=== PATIENT | female | born 1945 | race Caucasian/White ===

== ENCOUNTER 2021-07-14 14:11 | Observation (INO) ==
[2021-07-14] MEDS ORDERED: Ondansetron 4 MG/2 ML VIAL IVP ONE (20:02)
[2021-07-14] MEDS ORDERED: Morphine Sulfate 2 MG/ML SYRINGE IVP ONE (20:03)
[2021-07-14] MEDS ORDERED: Ketorolac 30 MG/ML VIAL IVP ONE (20:03)
[2021-07-14 20:20] LABS: Basophils % 0.4 %; Eosinophils # 0.1 K/mcL (0.0-0.6); Eosinophils % 0.7 %; Hematocrit 42.5 % (35.3-44.9); Hemoglobin 14.2 g/dL (11.5-15.4); Immature Granulocytes % 0.6 % (0-4); Lymphocytes # 1.1 K/mcL (0.6-4.6); Lymphocytes % 13.9 %; Mean Corpuscular HGB Conc 33.4 g/dL (31.6-35.5); Mean Corpuscular Hemoglobin 29.3 pg (28.0-33.3); Mean Corpuscular Volume 87.6 fL (83.0-100.0); Mean Platelet Volume 8.2 fL (9.4-12.4); Monocytes # 0.6 K/mcL (0.0-1.3); Monocytes % 7.1 %; Neutrophils # 6.4 K/mcL (1.6-8.9); Platelet Count 326 K/mcL (140-400); Red Blood Count 4.85 M/mcL (3.82-4.97); Red Cell Distribution Width 11.9 % (11.5-14.5); Segmented Neutrophils % 77.3 %; White Blood Count 8.2 K/mcL (4.3-11.1)
[2021-07-14 20:39] LABS: BUN/Creatinine Ratio 22 (6-26); Blood Urea Nitrogen 10 mg/dL (8-23); Calcium 9.5 mg/dL (8.6-10.3); Carbon Dioxide 25 mEq/L (23-29); Chloride 97 mEq/L (98-107); Glucose 81 mg/dL (70-105); Osmolality,Calculated 266 (280-300); Potassium 3.8 mEq/L (3.5-5.1); Sodium 129 mEq/L (136-145); eGFR For African Americans > 60 (> 60); eGFR For Non-African Americans > 60 (> 60)
[2021-07-14] MEDS ORDERED: Naloxone 0.4 MG/ML INJ IVP PRN (21:32)
[2021-07-14] MEDS ORDERED: Melatonin 3 MG TABLET PO PRN (21:32)
[2021-07-14] MEDS ORDERED: 0.9 % Sodium Chloride 1,000 ML IVC ONE (21:51)
[2021-07-14] MEDS: Morphine Sulfate 2 MG/ML SYRINGE IVP PRN (23:57)
[2021-07-15 00:35] LABS: Bilirubin,Urine Negative (Negative); Blood,Urine Negative (Negative); Clarity,Urine Clear (Clear); Color,Urine Yellow (Yellow); Glucose,Urine (UA) Normal (Normal); Ketones,Urine 150 mg/dL (Negative); Leukocyte Esterase,Urine Negative (Negative); Mucus,Urine Moderate per lpf (None-Few); Nitrite,Urine Negative (Negative); PH,Urine 5.5 pH Units (5.0-8.0); Protein,Urine 30 mg/dL (Neg-Trace); RBC,Urine 0-3 per hpf (0-3); Renal Epithelial Cells,Urine Few per hpf (None-Few); Specific Gravity,Urine 1.025 (1.010-1.025); Squamous Epithelial Cell,Urine Few per hpf (None-Few); Transitional Epi Cells,Urine Few per hpf (None-Few); Urobilinogen,Urine Normal (Normal)
[2021-07-15 05:25] LABS: Alanine Aminotransferase 12 Units/L (7-52); Albumin 3.5 g/dL (3.5-5.7); Albumin/Globulin Ratio 1.8 (1.1-2.2); Alkaline Phosphatase 50 Units/L (34-104); Aspartate Amino Transferase 16 Units/L (13-39); BUN/Creatinine Ratio 24 (6-26); Bilirubin,Total 0.6 mg/dL (0.3-1.0); Blood Urea Nitrogen 13 mg/dL (8-23); Carbon Dioxide 27 mEq/L (23-29); Chloride 100 mEq/L (98-107); Glucose 114 mg/dL (70-105); Magnesium 1.9 mg/dL (1.6-2.6); Osmolality,Calculated 275 (280-300); Phosphorous 3.2 mg/dL (2.7-4.5); Potassium 3.5 mEq/L (3.5-5.1); Sodium 132 mEq/L (136-145); Total Protein 5.5 g/dL (6.4-8.9); eGFR For African Americans > 60 (> 60); eGFR For Non-African Americans > 60 (> 60)
[2021-07-15 05:30] LABS: Basophils % 0.4 %; Eosinophils # 0.2 K/mcL (0.0-0.6); Hemoglobin 13.5 g/dL (11.5-15.4); Immature Granulocytes % 0.6 % (0-4); Lymphocytes # 1.6 K/mcL (0.6-4.6); Lymphocytes % 19.8 %; Mean Corpuscular HGB Conc 33.8 g/dL (31.6-35.5); Mean Corpuscular Hemoglobin 30.1 pg (28.0-33.3); Mean Corpuscular Volume 89.3 fL (83.0-100.0); Mean Platelet Volume 8.9 fL (9.4-12.4); Monocytes # 0.6 K/mcL (0.0-1.3); Monocytes % 8.1 %; Neutrophils # 5.5 K/mcL (1.6-8.9); Platelet Count 339 K/mcL (140-400); Red Blood Count 4.48 M/mcL (3.82-4.97); Red Cell Distribution Width 12.1 % (11.5-14.5); Segmented Neutrophils % 69.1 %; White Blood Count 7.9 K/mcL (4.3-11.1)
[2021-07-15 05:40] LABS: Thyroid Stimulating Hormone 17.785 mcIU/mL (0.340-5.600)
[2021-07-15] MEDS: Morphine Sulfate 2 MG/ML SYRINGE IVP PRN (06:12)
[2021-07-15] MEDS ORDERED: Morphine Sulfate 2 MG/ML SYRINGE IVP PRN ×2 (08:06→16:01)
[2021-07-15] MEDS: Metoprolol XL (24 HR) Succ 50 MG TAB.ER.24H PO SCH (08:32)
[2021-07-15] MEDS: Acetaminophen 325 MG TABLET PO PRN ×2 (09:00→15:52)
[2021-07-15 10:29] LABS: Triiodothyronine (T3) Free 1.94 pg/mL (2.50-3.90)
[2021-07-15] MEDS ORDERED: *HR* OxyCODONE/APAP 10/325 TABLET PO PRN (14:44)
[2021-07-15] MEDS ORDERED: *HR* OxyCODONE/APAP 5/325 TABLET PO PRN (14:44)
[2021-07-15] MEDS ORDERED: *HR* OxyCODONE/APAP 7.5/325 TABLET PO PRN (16:28)
[2021-07-15] MEDS: Sennosides 8.6 MG TABLET PO SCH ×2 (17:43→21:11)
[2021-07-15] MEDS: Ondansetron 4 MG/2 ML VIAL IVP PRN (17:44)
[2021-07-15] MEDS: *HR* OxyCODONE/APAP 5/325 TABLET PO PRN (17:44)
[2021-07-15 18:46] VITALS: O2SAT 97
[2021-07-15] MEDS: Aspirin Enteric Coated 81 MG Tablet PO SCH (18:47)
[2021-07-16] MEDS: *HR* OxyCODONE/APAP 5/325 TABLET PO PRN ×3 (01:23→09:52)
[2021-07-16] MEDS: Ondansetron 4 MG/2 ML VIAL IVP PRN (01:23)
[2021-07-16 05:07] LABS: BUN/Creatinine Ratio 26 (6-26); Blood Urea Nitrogen 14 mg/dL (8-23); Calcium 9.3 mg/dL (8.6-10.3); Carbon Dioxide 28 mEq/L (23-29); Chloride 98 mEq/L (98-107); Glucose 114 mg/dL (70-105); Osmolality,Calculated 271 (280-300); Sodium 130 mEq/L (136-145); eGFR For African Americans > 60 (> 60); eGFR For Non-African Americans > 60 (> 60)
[2021-07-16 08:20] VITALS: BP 132/80; PULSE 78; TEMP 98.1
[2021-07-16] MEDS ORDERED: Cholecalciferol (D-3) 1,000 UNIT (25MCG) TABLET PO SCH (09:00)
[2021-07-16] MEDS: Aspirin Enteric Coated 81 MG Tablet PO SCH (09:03)
[2021-07-16] MEDS: Metoprolol XL (24 HR) Succ 50 MG TAB.ER.24H PO SCH (09:03)
== END 2021-07-16 13:41 | disposition home health service (06) ==
LOC: EMEROOARM 14:11 → 4WAOSI 14:11 → SUATTDRO 20:31 → 4WAOSI 21:05
PROVIDERS: ADMIT Internal Medicine; ATTEND Internal Medicine